=== PATIENT | female | born 1980 | race African-American/Black ===

== ENCOUNTER → 2020-10-08 | Outpatient (CLI) | payer OTHER ==
[~2020-10-08] MED LIST: AMOXICILLI250 MG/51 PO; CLARITIN10 MG; [UNRECOGNIZED DRUG - OTHER] PO
== END ==
LOC: LAB 07:48
PROVIDERS: ATTEND Anesthesiology
DX: Z01.812 Encounter for preprocedural laboratory examination (principal); Z20.822 Contact with and (suspected) exposure to COVID-19